=== PATIENT | female | born 2000 | race Caucasian/White ===

== ENCOUNTER 2019-02-20 08:22 | Inpatient (IN) | payer OTHER ==
[2019-02-20] MEDS ORDERED: RINGERS SOLUTION,LACTATED 1,000 ML IV PRN (09:02)
[2019-02-20] MEDS ORDERED: RINGERS SOLUTION,LACTATED 300 ML IV ONE (09:02)
[2019-02-20] MEDS ORDERED: OXYTOCIN/NORMAL SALINE 20 UNIT/1,000 ML RTUINJ IV PRN (09:02)
--- NOTE | 2019-02-20 09:15 | Admission Physical ---
Datetime Report Generated by CPN: 02/20/2019 09:14 CURRENT ADMISSION Indication for Induction- Other: 41 weeks Admit Impression : Term, Intrauterine ; No Active Labor; Intact Membranes Admit Impression- Other: Limited PNC w/ this . Dated by 28 wk ultrasound Admit Plan: Admit to Unit; Initiate Labor Induction Protocol ALLERGIES Medication Allergies: No Medication Allergies: No Known Allergies (02/20/2019) OBSTETRICAL HISTORY : 2 Para: 1 Ectopic: 0 Livin Cesareans: 0 VBACs: 0 Multiple Births: 0 PHYSICAL EXAM General: Normal HEENT: Normal Neurologic: Normal Thyroid: Normal Heart: Normal Lungs: Normal Breast: Normal Back: Normal Abdomen: Normal Genitourinary Exam: Normal Extremities: Normal DTRs: Normal Pelvic Type: Adequate Vital Signs: Reviewed MEMBRANES Membranes: Intact FETUS A Monitoring: External US Admit Comment: presents for IOL. GBS negative. Pt w/ very limited PNC. States she "did not realize she was ". Dated by 28 week ultrasound. VE in the office last week /, Vtx on [place] today. Plan to admit and start Routine Pitocin. Dr Trinidad is the attending MD and agrees w/ plan of care to procede w/ IOL today. PLANS FOR LABOR AND DELIVERY Feeding Preference: Breast Benefit of Breast Feed Discussed: Yes INFORMED CONSENT Assignment: Madhuri Trinidad MD Signature: with User ID: [email or web address] : with User ID: [email or web address]
[2019-02-20 09:18] LABS: ABSOLUTE BASOPHILS # (AUTO) 0.1 10^3/uL (0.0-0.2); ABSOLUTE EOSINOPHILS # (AUTO) 0.1 10^3/uL (0.0-0.6); ABSOLUTE LYMPHOCYTES (AUTO) 2.4 10^3/uL (0.5-4.7); ABSOLUTE MONOCYTES (AUTO) 0.9 10^3/uL (0.1-1.4); ABSOLUTE NEUT (AUTO) 6.2 10^3/uL (1.7-8.2); BASOPHILS % (AUTO) 0.7 % (0-2); EOSINOPHILS % (AUTO) 0.6 % (0-6); HEMATOCRIT 31.9 % (36.0-47.0); HEMOGLOBIN 10.8 g/dL (12.0-15.5); LYMPHOCYTES % (AUTO) 25.2 % (13-45); MEAN CORPUSCULAR HEMOGLOBIN 29.9 pg (27.0-33.4); MEAN CORPUSCULAR HGB CONC 33.8 g/dL (32.0-36.0); MEAN CORPUSCULAR VOLUME 89 fl (80-97); MONOCYTES % (AUTO) 9.1 % (3-13); PLATELET COUNT 322 10^3/uL (150-450); RED CELL DISTRIBUTION WIDTH 15.2 % (11.5-14.0); SEGMENTED NEUTROPHILS % (AUTO) 64.4 % (42-78); TOTAL CELLS COUNTED % (AUTO) 100 %; WHITE BLOOD COUNT 9.7 10^3/uL (4.0-10.5)
[2019-02-20 09:27] LABS: APPEARANCE,URINE SLIGHTLY-CLOUDY; BILIRUBIN,URINE NEGATIVE (NEGATIVE); COLOR,URINE YELLOW; GLUCOSE, URINE NEGATIVE (NEGATIVE); KETONES,URINE NEGATIVE (NEGATIVE); LEUKOCYTE ESTERASE,URINE LARGE (NEGATIVE); NITRITE,URINE NEGATIVE (NEGATIVE); PROTEIN,URINE NEGATIVE (NEGATIVE); UROBILINOGEN,URINE NEGATIVE mg/dL (<2.0)
[2019-02-20 09:44] LABS: URINE AMPHETAMINES SCREEN NEGATIVE; URINE BARBITURATES SCREEN NEGATIVE; URINE BENZODIAZEPINES SCREEN NEGATIVE; URINE COCAINE SCREEN NEGATIVE; URINE MARIJUANA (THC) SCREEN NEGATIVE; URINE METHADONE SCREEN NEGATIVE; URINE PHENCYCLIDINE SCREEN NEGATIVE
[2019-02-20] MEDS ORDERED: LIDOCAINE 1% INJ-PF (10 MG/ML) 30 ML SDV ONE (11:21)
[2019-02-20] MEDS ORDERED: OXYTOCIN 10 UNIT/ML VIAL ONE (11:21)
[2019-02-20] MEDS ORDERED: MISOPROSTOL 0.2 MG TABLET ONE (11:21)
[2019-02-20] MEDS ORDERED: OXYTOCIN/NORMAL SALINE 20 UNIT/1,000 ML RTUINJ ONE (11:22)
[2019-02-20] MEDS ORDERED: FENTANYL/BUPIVACAINE/NS/PF 300 MCG/150 ML RTUINJ EPI ONE (19:50)
[2019-02-20] MEDS ORDERED: EPHEDRINE SULFATE INJ 50 MG/1 ML AMPULE ONE (19:50)
[2019-02-20] MEDS ORDERED: FENTANYL CITRATE INJ/PF 100 MCG/2 ML AMPUL ONE (19:50)
[2019-02-20] MEDS ORDERED: BUPIVACAINE HCL 0.25 % INJ/PF (2.5 MG/1 ML) 30 ML VIAL ONE (19:50)
[2019-02-20] MEDS ORDERED: FAMOTIDINE INJ/PF 20 MG/2 ML SDV IV ONE ×2 (23:28→23:45)
[2019-02-21] MEDS ORDERED: OXYTOCIN/NORMAL SALINE 20 UNIT/1,000 ML RTUINJ ONE (00:18)
[2019-02-21] MEDS ORDERED: PROMETHAZINE HCL 25 MG TABLET PO PRN (00:23)
[2019-02-21] MEDS ORDERED: PSEUDOEPHEDRINE HCL 30 MG TABLET PO PRN (00:23)
[2019-02-21] MEDS ORDERED: NA PHOS,M-B/NA PHOS,DI-BA (ADULT) 133 ML ENEMA PR PRN (00:23)
[2019-02-21] MEDS ORDERED: ZOLPIDEM TARTRATE 5 MG TABLET PO PRN (00:23)
[2019-02-21] MEDS ORDERED: DIPH/PERTUSS(ACELL)/TETANUS VAC/PF 0.5 ML SYR (>=10YO) IM PRN (00:23)
[2019-02-21] MEDS ORDERED: PROMETHAZINE HCL INJ 25 MG/1 ML VIAL IV PRN (00:23)
[2019-02-21] MEDS ORDERED: DIBUCAINE 1% OINTMENT 28 GM TP PRN (00:23)
[2019-02-21] MEDS ORDERED: ACETAMINOPHEN WITH CODEINE #3 TABLET PO PRN ×2 (00:23)
[2019-02-21] MEDS ORDERED: MEASLES,MUMPS&RUBELLA VACC/PF 0.5 ML VIAL SUBCUT PRN (00:23)
[2019-02-21] MEDS ORDERED: OXYTOCIN/NORMAL SALINE 20 UNIT/1,000 ML RTUINJ IV PRN (00:23)
[2019-02-21] MEDS ORDERED: DIPHENHYDRAMINE HCL 25 MG CAPSULE PO PRN (00:23)
[2019-02-21] MEDS ORDERED: BENZOCAINE/MENTHOL AEROSOL SPRAY 56 ML TOP PRN (00:23)
[2019-02-21] MEDS ORDERED: MAGNESIUM HYDROXIDE SUSP 30 ML UDCUP PO PRN (00:23)
[2019-02-21] MEDS ORDERED: GLYCERIN/WITCH HAZEL LEAF 1 EACH MED..WIPE TP PRN (00:23)
[2019-02-21] MEDS ORDERED: PROMETHAZINE HCL 25 MG SUPP.RECT PR PRN (00:23)
[2019-02-21] MEDS ORDERED: ACETAMINOPHEN 650 MG SUPP.RECT PR PRN (00:23)
[2019-02-21] MEDS ORDERED: AMPICILLIN SOD/SULBACTAM 3 GM VIAL IV ONE (00:30)
[2019-02-21] MEDS ORDERED: AMPICILLIN SOD/SULBACTAM 3 GM VIAL ONE (00:32)
[2019-02-21] MEDS: IBUPROFEN 800 MG TABLET PO SCH ×3 (05:56→21:18)
[2019-02-21] MEDS: FAMOTIDINE 20 MG TABLET PO SCH ×2 (10:06→21:19)
[2019-02-21] MEDS: DOCUSATE SODIUM 100 MG CAPSULE PO SCH ×2 (10:07→18:41)
[2019-02-21] MEDS: FERROUS SULFATE 325 MG TABLET PO SCH ×2 (10:07→18:41)
[2019-02-21] MEDS: SENNOSIDES/DOCUSATE 8.6-50 MG 1 EACH TABLET PO SCH (10:07)
[2019-02-21] MEDS: PRENATAL VITAMIN W DHA CAPSULE PO SCH (10:07)
[2019-02-21] MEDS ORDERED: FAMOTIDINE 20 MG TABLET ONE (20:59)
[2019-02-22] MEDS: IBUPROFEN 800 MG TABLET PO SCH ×2 (05:06→14:25)
[2019-02-22 06:45] LABS: HEMATOCRIT 24.9 % (36.0-47.0); MEAN CORPUSCULAR HEMOGLOBIN 30.1 pg (27.0-33.4); MEAN CORPUSCULAR HGB CONC 34.1 g/dL (32.0-36.0); MEAN CORPUSCULAR VOLUME 88 fl (80-97); PLATELET COUNT 246 10^3/uL (150-450); RED BLOOD COUNT 2.83 10^6/uL (3.72-5.28); WHITE BLOOD COUNT 10.1 10^3/uL (4.0-10.5)
[2019-02-22 06:46] LABS: HEMOGLOBIN 8.5 g/dL (12.0-15.5)
[2019-02-22] MEDS: FERROUS SULFATE 325 MG TABLET PO SCH ×2 (10:42→17:58)
[2019-02-22] MEDS: SENNOSIDES/DOCUSATE 8.6-50 MG 1 EACH TABLET PO SCH (10:42)
[2019-02-22] MEDS: PRENATAL VITAMIN W DHA CAPSULE PO SCH (10:42)
[2019-02-22] MEDS: FAMOTIDINE 20 MG TABLET PO SCH (10:42)
[2019-02-22] MEDS: DOCUSATE SODIUM 100 MG CAPSULE PO SCH ×2 (10:42→17:58)
--- NOTE | 2019-02-22 11:23 | PDOC PROGRESS REPORT ---
Subjective-OB Progress Note for:: 02/22/19 Subjective: 18yo s/p ppd1. Ambulating, voiding and without difficulty. Pain well controlled with medication. No concerns today Physical Exam (OB) Vital Signs: Temp Pulse Resp BP Pulse Ox 97.6 F 73 22 106/51 L 98 02/22/19 09:17 02/22/19 09:17 02/22/19 09:17 02/22/19 07:47 02/22/19 09:17 Intake & Output 02/21/19 02/22/19 02/23/19 06:59 06:59 06:59 Intake Total 1000 Balance 1000 Weight 100 kg - General General Appearance: Appears well In distress: None - PIH/Pre-Eclampsia DTR's: 1 + Clonus: Negative Headache: Absent Epigastric Pain: No Visual Changes: No - Episiotomy/Laceration Site Condition: N/A - Lochia Lochia Amount: Small 10-25 ml Lochia Color: Rubra/Red - Abdomen Description: Soft, Round Hernia Present: No Fundal Description: Firm, Midline Fundal Height: u/u - u/2 - Respiratory Respiratory Status: No respiratory distress - Extremities Upper extremity: Normal inspection Lower extremities: Normal inspection - Neurological Cognition: Normal Orientation: AAOx4 - Psychological Associated symptoms: Normal affect, Normal mood Objective-Diagnostic Laboratory: 02/22/19 06:26 02/22/19 06:26 WBC 10.1 RBC 2.83 L Hgb 8.5 L D Hct 24.9 L MCV 88 MCH 30.1 MCHC 34.1 RDW 15.0 H Plt Count 246 Assessment and Plan(PN) - Assessment and Plan (1) Encounter for induction of labor Is this a current diagnosis for this admission?: Yes Plan: delivered (2) Anemia complicating , third trimester Is this a current diagnosis for this admission?: Yes Plan: increase dietary iron and FeSO4 BID (3) Acute blood loss anemia Is this a current diagnosis for this admission?: Yes Plan: same as above (4) Vaginal delivery Is this a current diagnosis for this admission?: Yes Plan: routine pp care (5) Limited care Qualifiers: Trimester: unspecified trimester Qualified Code(s): O09.30 - Supervision of with insufficient care, unspecified trimester Is this a current diagnosis for this admission?: Yes Plan: delivered, discharge planning consult placed - Time Spent with Patient Time with patient: Less than 15 minutes Medications reviewed and adjusted accordingly: Yes - Disposition Anticipated Discharge: Home Within: within 24 hours
[2019-02-22] MEDS ORDERED: FAMOTIDINE 20 MG TABLET ONE (23:50)
[2019-02-23] MEDS: IBUPROFEN 800 MG TABLET PO SCH ×3 (00:05→13:09)
[2019-02-23] MEDS: FAMOTIDINE 20 MG TABLET PO SCH ×2 (00:06→11:51)
[2019-02-23 08:09] VITALS: BP 98/62
[2019-02-23] MEDS: DOCUSATE SODIUM 100 MG CAPSULE PO SCH (09:43)
[2019-02-23] MEDS: FERROUS SULFATE 325 MG TABLET PO SCH (09:43)
[2019-02-23] MEDS: SENNOSIDES/DOCUSATE 8.6-50 MG 1 EACH TABLET PO SCH (09:43)
[2019-02-23] MEDS: PRENATAL VITAMIN W DHA CAPSULE PO SCH (09:43)
--- NOTE | 2019-02-23 14:13 | PDOC DISCHARGE SUMMARY ---
Impression - Admit/DC Date/PCP Admission Date/Primary Care Provider: 02/20/19 08:23 BERTA OSORIO MD Discharge Date: 02/23/19 - Assessment Summary: Patient delivered on the . It appears she had both anemia during her and then had a drop after her delivery consistent with anemia from blood loss. day 1 on the she is doing well and today she is day 2. She feels well and is comfortable going home today. She requires no medication. She will follow-up in 4 weeks. - Additional Information Resuscitation Status: Full Code Discharge Diet: Regular Discharge Activity: Activity As Tolerated, Balance Activity w/Rest, No Lifting Over 10 Pounds, No Lifting/Push/Pulling, Pelvic Rest, No tub bath, Walk Frequently Referrals: [facility] [Provider Group] (Please call and schedule a 4 week follow up at [facility].) Home Medications: No122/Iron/Folic Acid [ Multi Tablet] 1 tab PO DAILY 02/20/19 History of Present Illiness History of Present Illness: CAMPBELL TEE is a 18 year old female Physical Exam - Physical Exam Vital Signs: Temp Pulse Resp BP Pulse Ox 97.7 F 61 16 98/62 L 100 02/23/19 13:18 02/23/19 13:18 02/23/19 13:18 02/23/19 13:18 02/23/19 13:18 Intake & Output 02/22/19 02/23/19 02/24/19 06:59 06:59 06:59 Intake Total 1000 Balance 1000 Results Laboratory Results: WBC 10.1 10^3/uL (4.0-10.5) 02/22/19 06:26 RBC 2.83 10^6/uL (3.72-5.28) L 02/22/19 06:26 Hgb 8.5 g/dL (12.0-15.5) L D 02/22/19 06:26 Hct 24.9 % (36.0-47.0) L 02/22/19 06:26 MCV 88 fl (80-97) 02/22/19 06:26 MCH 30.1 pg (27.0-33.4) 02/22/19 06:26 MCHC 34.1 g/dL (32.0-36.0) 02/22/19 06:26 RDW 15.0 % (11.5-14.0) H 02/22/19 06:26 Plt Count 246 10^3/uL (150-450) 02/22/19 06:26 Lymph % (Auto) 25.2 % (13-45) 02/20/19 08:40 [place] % (Auto) 9.1 % (3-13) 02/20/19 08:40 Eos % (Auto) 0.6 % (0-6) 02/20/19 08:40 Baso % (Auto) 0.7 % (0-2) 02/20/19 08:40 Absolute Neuts (auto) 6.2 10^3/uL (1.7-8.2) 02/20/19 08:40 Absolute Lymphs (auto) 2.4 10^3/uL (0.5-4.7) 02/20/19 08:40 Absolute Monos (auto) 0.9 10^3/uL (0.1-1.4) 02/20/19 08:40 Absolute Eos (auto) 0.1 10^3/uL (0.0-0.6) 02/20/19 08:40 Absolute Basos (auto) 0.1 10^3/uL (0.0-0.2) 02/20/19 08:40 Seg Neutrophils % 64.4 % (42-78) 02/20/19 08:40 Urine Color YELLOW 02/20/19 08:35 Urine Appearance SLIGHTLY-CLOUDY 02/20/19 08:35 Urine pH 8.0 (5.0-9.0) 02/20/19 08:35 Ur Specific [place] 1.010 02/20/19 08:35 Urine Protein NEGATIVE mg/dL (NEGATIVE) 02/20/19 08:35 Urine Glucose (UA) NEGATIVE mg/dL (NEGATIVE) 02/20/19 08:35 Urine Ketones NEGATIVE mg/dL (NEGATIVE) 02/20/19 08:35 Urine Blood SMALL (NEGATIVE) H 02/20/19 08:35 Urine Nitrite NEGATIVE (NEGATIVE) 02/20/19 08:35 Urine Bilirubin NEGATIVE (NEGATIVE) 02/20/19 08:35 Urine Urobilinogen NEGATIVE mg/dL (<2.0) 02/20/19 08:35 Ur Leukocyte Esterase LARGE (NEGATIVE) H 02/20/19 08:35 Urine Ascorbic Acid NEGATIVE (NEGATIVE) 02/20/19 08:35 Urine Opiates Screen NEGATIVE 02/20/19 08:35 Urine Methadone Screen NEGATIVE 02/20/19 08:35 Ur Barbiturates Screen NEGATIVE 02/20/19 08:35 Ur Phencyclidine Scrn NEGATIVE 02/20/19 08:35 Ur Amphetamines Screen NEGATIVE 02/20/19 08:35 U Benzodiazepines Scrn NEGATIVE 02/20/19 08:35 Urine Cocaine Screen NEGATIVE 02/20/19 08:35 U Marijuana (THC) Screen NEGATIVE 02/20/19 08:35 RPR NONREACTIVE (NONREACTIVE) 02/20/19 08:40 Blood Type O POSITIVE 02/20/19 08:40 Antibody Screen NEGATIVE 02/20/19 08:40 Stroke Is this a Stroke Patient?: No Acute Heart Failure - Is this a Heart Failure Patient?: No
--- NOTE | 2019-02-24 14:52 | Delivery Summary ---
Del Sum A-C Datetime Report Generated by CPN: 02/24/2019 14:51 DELIVERY PERSONNEL DELIVERY PERSONNEL: [id number] Delivery Doctor:: Madhuri Trinidad MD Labor and Delivery Nurse:: Janis Miller RNsagger maker Nurse:: JEAN CLAUDE [place] Copy Worker:: Alyssa Holland RN Spot Sprayer/DIAGNOSTIC SALES SPECIALIST: Emma Green, ST MATERNAL INFORMATION Delivery Anesthesia: Epidural Medications After Delivery: Pitocin Drip 20 Units/1000ml NSS Estimated Blood Loss (ml): 200 Delivery QBL: 200 Maternal Complications: None LABOR SUMMARY EDC: 02/12/2019 00:00 No. Babies in Womb: 1 Attempted: No Labor Anesthesia: Epidural LABOR INFORMATION Reason for Induction: Post Dates Onset of Labor: 02/20/2019 16:17 Complete Dilatation: 02/20/2019 23:18 Oxytocin: Induction Group B Beta Strep: NEGATIVE Antibiotics # of Doses: 0 Antibiotics Time of Last Dose: 0 Name of Antibiotic Given: 0 Steroids Given: None Reason Steroids Not Administered: Not Applicable Other Reason Not Administered: n/a MEMBRANES Membranes Rupture Method: Artificial Rupture of Membranes: 02/20/2019 16:17 Length of Rupture (hr): 7.93 Amniotic Fluid Color: Clear Amniotic Fluid Amount: Small Amniotic Fluid Odor: Normal STAGES OF LABOR Stage 1 hr: 7 Stage 1 min: 1 Stage 2 hr: 0 Stage 2 min: 55 Stage 3 hr: 0 Stage 3 min: 3 Total Time in Labor hr: 7 Total Time in Labor min: 59 VAGINAL DELIVERY Episiotomy: None Laceration #1: None Laceration Repair: Not Applicable Sponge Count Correct: N/A Sharps Count Correct: N/A BABY A INFORMATION Delivery Date/Time: 02/21/2019 00:13 Method of Delivery: Vaginal Born in Route : No : N/A Forceps: N/A Vacuum Extraction: N/A Shoulder Dystocia : No PRESENTATION/POSITION BABY A Presentation: Cephalic Cephalic Presentation: Vertex Vertex Position: Right Occipital Anterior Breech Presentation: N/A PLACENTA INFORMATION BABY A Placenta Delivery Time : 02/21/2019 00:16 Placenta Method of Delivery: Spontaneous Placenta Status: Delivered SCORES BABY A Heart Rate 1 min: >100 bpm Resp Effort 1 min: Good Cry Reflex Irritability 1 min: Cough or Sneeze or Pulls Away Muscle Tone 1 min: Active Motion Color 1 min: Blue/Pale Resuscitation Effort 1 min: Tactile Stimulation SCORE 1 MIN: 8 Heart Rate 5 min: >100 bpm Resp Effort 5 min: Good Cry Reflex Irritability 5 min: Cough or Sneeze or Pulls Away Muscle Tone 5 min: Active Motion Color 5 min: Body [place], Extremities Blue Resuscitation Effort 5 min: Tactile Stimulation SCORE 5 MIN: 9 INFANT INFORMATION BABY A Gestational Age at Delivery: 41.2 Gestational Status: Late Term- 41- 41.6 Weeks Infant Outcome : Liveborn Condition : Stable Infant Sex: Female IDENTIFICATION BABY A Verification Date/Time: 02/21/2019 00:29 ID Band Number: [id number] Mother's Name Verified: Yes RN Verifying : YI Crespo Additional Verifying Personnel: YI Roth WEIGHT/LENGTH BABY A Infant Birthweight (gm): 3674 Infant Weight (lb): 8 Infant Weight (oz): 2 Length (in): 19.00 Length (cm): 48.26 CORD INFORMATION BABY A No. Cord Vessels: 3 Nuchal Cord : Around Neck x1, Loose Cord Blood Taken: Yes-For Eval (Mom's Blood Type - or O+) Suction: Mouth; Nose ASSESSMENT BABY A Skin to Skin: Yes Skin to Skin Time (min): 90 BABY B INFORMATION : N/A SIGNATURES Signature: with User ID: [email or web address]
== END 2019-02-23 15:45 | disposition home or self-care (01) | DRG 806 ==
LOC: LR 08:23 → 2S 02-21 03:32
PROVIDERS: ADMIT Obstetrics & Gynecology; ATTEND Obstetrics & Gynecology
PROC: 10907ZC Drainage of Amniotic Fluid, Therapeutic from Products of Conception, Via Natural or Artificial Opening (ICD-10-PCS; 2019-02-20)
PROC: 10E0XZZ Delivery of Products of Conception, External Approach (ICD-10-PCS; principal; 2019-02-21)
DX: O48.0 Post-term pregnancy (principal); D62 Acute posthemorrhagic anemia; Z37.0 Single live birth; O69.81X0 Labor and delivery complicated by cord around neck, without compression, not applicable or unspecified; Z3A.41 41 weeks gestation of pregnancy; O99.02 Anemia complicating childbirth
CPT/HCPCS: 36415; 80307; 81005; 85025; 85027; 86592; 86850; 86900; 86901; J0295; J2590; J3010; J3490; S0028